=== PATIENT | female | born 2000 | race Caucasian/White ===

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

== ENCOUNTER → 2021-03-01 09:56 | Outpatient (CLI) | payer OTHER, SELFPAY ==
[2021-03-01 10:48] LABS: Add Manual Diff / Slide Review NO; Basophils Absolute Auto 0 /uL (0-100); Basophils Percent Auto 0.6 % (0-2); Eosinophils Absolute Auto 200 /uL (0-450); Eosinophils Percent Auto 3.2 % (2-4); Hematocrit 41.6 % (36-46); Hemoglobin 13.6 g/dL (12.0-16.0); Lymphocytes Absolute Auto 2500 /uL (1100-4500); Lymphocytes Percent Auto 35.6 % (25-40); Mean Corpuscular HGB Conc 32.8 % (30-36); Mean Corpuscular Volume 79.2 fL (80-100); Monocytes Absolute Auto 500 /uL (0-900); Monocytes Percent Auto 7.1 % (3-14); Neutrophils Absolute Auto 3800 /uL (1500-7000); Neutrophils Percent Auto 53.5 % (50-75); Platelet Count 330 X10^3/uL (150-400); Red Blood Cell Count 5.24 X10^6/uL (4.0-5.2); White Blood Cell Count 7.1 X10^3/uL (4.5-11.0)
== END ==
PROVIDERS: PCP Registered Nurse; Referring Provider Registered Nurse; Visit Provider Registered Nurse
DX: D64.9 Anemia, unspecified (principal)
CPT/HCPCS: 36415; 85025

== ENCOUNTER → 2022-04-14 14:04 | Outpatient (CLI) | payer OTHER, SELFPAY ==
[2022-04-14 14:31] LABS: Add Manual Diff / Slide Review NO; Basophils Absolute Auto 0 /uL (0-100); Basophils Percent Auto 0.4 % (0-2); Eosinophils Absolute Auto 300 /uL (0-450); Eosinophils Percent Auto 3.3 % (2-4); Hematocrit 40.2 % (36-46); Hemoglobin 13.2 g/dL (12.0-16.0); Lymphocytes Absolute Auto 2300 /uL (1100-4500); Lymphocytes Percent Auto 26.6 % (25-40); Mean Corpuscular HGB Conc 32.9 % (30-36); Mean Corpuscular Hemoglobin 27.2 PG (26-34); Mean Corpuscular Volume 82.6 fL (80-100); Monocytes Absolute Auto 700 /uL (0-900); Monocytes Percent Auto 7.6 % (3-14); Neutrophils Absolute Auto 5300 /uL (1500-7000); Neutrophils Percent Auto 62.1 % (50-75); Platelet Count 309 X10^3/uL (150-400); Red Blood Cell Count 4.87 X10^6/uL (4.0-5.2); Red Cell Distribution Width 13.8 % (11.6-14.8); White Blood Cell Count 8.6 X10^3/uL (4.5-11.0)
[2022-04-14 14:47] LABS: HEMOLYSIS < 15 (0-50); Iron 73 ug/dL (37-170)
[2022-04-14 14:57] LABS: Percent Iron Saturation 21 % (15-50); Total Iron Binding Capacity 352 ug/dL (265-497); Transferrin 262 mg/dL (206-381)
[2022-04-14 15:22] LABS: Ferritin 11 ng/mL (6-137)
== END ==
PROVIDERS: PCP Family Medicine; Referring Provider Family Medicine; Visit Provider Family Medicine
DX: E61.1 Iron deficiency (principal); N92.6 Irregular menstruation, unspecified
CPT/HCPCS: 36415; 82728; 83540; 83550; 85025

== ENCOUNTER → 2022-07-30 14:18 | Outpatient (CLI) | payer OTHER, SELFPAY | PROVIDERS: PCP Family Medicine; Visit Provider Family Medicine | DX: R10.9 Unspecified abdominal pain (principal) | CPT/HCPCS: 87086 ==

== ENCOUNTER → 2022-08-16 11:20 | Outpatient (CLI) | payer OTHER, SELFPAY ==
--- NOTE | 2022-08-16 11:21 | DI.US.S_ITS ---
PROCEDURE: US PELVIC COMPLETE INDICATIONS: PAIN TECHNIQUE: Real-time scanning was performed of the pelvic organs, with image documentation. Additional endovaginal scanning was necessary due to incomplete visualization of the adnexal and endometrial structures by transabdominal scanning. COMPARISON: None. FINDINGS: Uterus: Uterus is anteverted and normal in size at 7.2 x 3.6 x 4.5 cm. The myometrium is homogeneous. The endometrium measures 3 mm combined thickness. Ovaries: The right ovary measures 1.3 x 3.0 x 1.4 cm, with a calculated ovarian volume of 3 cc. The left ovary measures 2.8 x 3.1 x 1.5 cm, with a calculated ovarian volume of 7 cc. The ovaries have a normal sonographic appearance. Less than 12 follicles can be seen in each ovary. No adnexal masses are seen. Other: No pathologic free abdominal or pelvic fluid. IMPRESSION: Unremarkable pelvic ultrasound. We strive to produce accurate, complete, and clear reports of imaging services. To assist us in improving patient care, this report was composed using standard report templates and voice recognition software. Therefore, it may contain abnormal punctuation, insertions and/or omissions. Occasional wrong-word or sound-alike substitutions may occur. Though we review the report and make efforts to correct it, we do recommend that the report be read carefully in proper context to recognize any text inaccuracies. Dictated by: Onur Siddiqi M.D. on 08/16/2022 at 13:46 Approved by: Onur Siddiqi M.D. on 08/16/2022 at 13:47
== END ==
PROVIDERS: PCP Family Medicine; Referring Provider Family Medicine; Visit Provider Family Medicine
DX: R10.2 Pelvic and perineal pain (principal)
CPT/HCPCS: 76830; 76856; 93975

== ENCOUNTER → 2022-10-09 09:03 | Outpatient (CLI) | payer OTHER, SELFPAY ==
[2022-10-10 12:10] LABS: Candida species Negative (Negative); Gardnerella vaginalis Negative (Negative); Trichomoas vaginalis Negative (Negative)
== END ==
PROVIDERS: PCP Family Medicine; Visit Provider Specialist
DX: Z87.440 Personal history of urinary (tract) infections (principal)
CPT/HCPCS: 87480; 87510; 87660

== ENCOUNTER → 2024-05-02 09:03 | Outpatient (CLI) | payer OTHER, SELFPAY ==
[2024-05-02 10:21] LABS: Add Manual Diff / Slide Review NO; Basophils Absolute Auto 0 /uL (0-100); Basophils Percent Auto 0.4 % (0-2); Eosinophils Absolute Auto 200 /uL (0-450); Eosinophils Percent Auto 2.9 % (2-4); Hematocrit 36.6 % (36-46); Hemoglobin 12.1 g/dL (12.0-16.0); Lymphocytes Absolute Auto 2200 /uL (1100-4500); Lymphocytes Percent Auto 34.7 % (25-40); Mean Corpuscular HGB Conc 32.9 % (30-36); Mean Corpuscular Hemoglobin 26.1 PG (26-34); Mean Corpuscular Volume 79.2 fL (80-100); Monocytes Absolute Auto 500 /uL (0-900); Monocytes Percent Auto 8.1 % (3-14); Neutrophils Absolute Auto 3400 /uL (1500-7000); Neutrophils Percent Auto 53.9 % (50-75); Platelet Count 269 X10^3/uL (150-400); Red Blood Cell Count 4.63 X10^6/uL (4.0-5.2); Red Cell Distribution Width 15.5 % (11.6-14.8); White Blood Cell Count 6.4 X10^3/uL (4.5-11.0)
[2024-05-02 10:39] LABS: HEMOLYSIS < 15 (0-50); Iron 131 ug/dL (37-170)
[2024-05-02 10:49] LABS: Percent Iron Saturation 37 % (15-50); Total Iron Binding Capacity 350 ug/dL (265-497); Transferrin 316 mg/dL (206-381)
[2024-05-02 11:14] LABS: Ferritin 10 ng/mL (6-137)
[2024-05-03 03:39] LABS: HBsAg Screen Negative (Negative); Hepatitis A Antibody IgM Negative (Negative); Hepatitis B Core Antibody IgM Negative (Negative); Hepatitis C Antibody Non Reactive (Non Reactive)
== END ==
LOC: LAB 09:03
PROVIDERS: PCP Family Medicine; Referring Provider Family Medicine; Visit Provider Family Medicine
DX: Z11.59 Encounter for screening for other viral diseases (principal); D64.9 Anemia, unspecified; E61.1 Iron deficiency
CPT/HCPCS: 36415; 80074; 82728; 83540; 83550; 85025

== ENCOUNTER 2025-01-13 18:28 | Emergency (ER) | payer OTHER, SELFPAY ==
[2025-01-13 18:35] VITALS: BP 167/101; PULSE 94; RESP 14; TEMP 36.6; O2SAT 98; BMI 25.8
--- NOTE | 2025-01-13 18:51 | ED.FEMALEGU ---
HPI - Female Genitourinary General Chief complaint: Urogenital-Female Stated complaint: urogenital female Time Seen by Provider: 01/13/25 18:50 Source: patient Mode of arrival: Ambulatory History of Present Illness HPI Narrative: Patient here with mother. Complains of recurrent UTI. Patient started with another UTI about a month ago. Was placed on Macrobid without success. Last dose was about a week ago. Seen at outside facility. Patient has had off and on UTIs for the past 4 years. Has appointment in March 2025 with gynecological urology services. Patient denies any flank pain no fever chills no vomiting. Blood pressure noted. Patient is slightly anxious. Related Data Home Medications ?Medication ?Instructions ?Recorded ?Confirmed ferrous sulfate [Iron (ferrous 1 cap PO .qd 05/02/24 05/02/24 sulfate)] Previous Rx's ?Medication ?Instructions ?Recorded cefdinir 300 mg capsule 300 mg PO BID #14 caps 01/13/25 phenazopyridine 200 mg tablet 200 mg PO TID PRN pain 6 doses #6 01/13/25 (Pyridium) tabs Allergies Allergy/AdvReac Type Severity Reaction Status Date / Time No Known Allergies Allergy Uncoded 01/13/25 18:35 Review of Systems Review of Systems Narrative: GENERAL: Negative chills, fatigue, malaise, fever, sweats. HEENT: Negative sinus pain, ear pain, sore throat RESPIRATORY: Negative dyspnea, cough CARDIOVASCULAR: Negative chest pain, palpitations GASTROINTESTINAL: Negative vomiting, nausea, abdominal pain : Positive dysuria, frequency, negative hematuria MUSCULOSKELETAL: Negative muscle or bony pain SKIN: Negative rash, skin lesions NEUROLOGIC: Negative weakness, numbness ROS Unobtainable: All systems reviewed & are unremarkable except as noted in HPI and below Patient History Medical History (Updated 01/13/25 @ 18:54 by Alonzo Sauer MD) Iron deficiency Irregular periods Anemia, unspecified Immunization due Exam Narrative Exam Narrative: GENERAL: in no distress, not toxic not dyspneic HEAD: Normocephalic. EYES: Pupils equal round ENT: Mucous membranes moist. NECK: Trachea midline. CARDIOVASCULAR: Regular rate and rhythm RESPIRATORY: Clear to auscultation. Breath sounds equal bilaterally. No wheezes, rales, or rhonchi. GASTROINTESTINAL: Abdomen soft, reproducible suprapubic tenderness. No CVA tenderness. No peritoneal signs. No guarding or rebound. BACK: No flank tenderness. EXTREMITIES: No gross deformities. NEURO: AOx4. Clear speech SKIN: Warm and dry PSYCH: Not anxious, is cooperative Initial Vital Signs Initial Vital Signs: Vital Signs Temperature 98 F 01/13/25 18:35 Pulse Rate 94 H 01/13/25 18:35 Respiratory Rate 14 01/13/25 18:35 Blood Pressure 167/101 H 01/13/25 18:35 Pulse Oximetry 98 01/13/25 18:35 Oxygen Delivery Method Room Air 01/13/25 18:35 Course Orders Ordered: Discontinued Medications Cefdinir (Cefdinir 300 Mg Capsule) 300 mg PO NOW ONE Stop: 01/13/25 18:52 Last Admin: 01/13/25 19:03 Dose: 300 mg Documented By: EDWARD Phenazopyridine HCl (Phenazopyridine 100 Mg Tablet) 200 mg PO NOW ONE Stop: 01/13/25 18:52 Last Admin: 01/13/25 19:03 Dose: 200 mg Documented By: EDWARD Vital Signs Vital signs: Vital Signs - 8 hr 01/13/25 18:35 01/13/25 20:06 Temperature 98 F Pulse Rate 94 H 79 Respiratory Rate 14 20 Blood Pressure 167/101 H 143/85 H Pulse Oximetry 98 96 Oxygen Delivery Method Room Air Room Air MDM - Female Genitourinary Lab Data Labs: Point of Care Testing Test Results Negative Urine Dip Bedside Urine Glucose Negative Bedside Urine Bilirubin - Negative Bedside Urine Ketone - Negative Urine Specific [place] 1.000 Bedside Urine Occult Blood - Negative Bedside Urine pH 5.5 Bedside Urine Protein - Negative Bedside Urine Urobilinogen - Negative Bedside Urine Nitrite - Negative Bedside Urine Leukocytes - Negative Esterase [facility] Narrative Medical decision making narrative: Patient brought in by family private vehicle for bright red per rectum rectal bleeding that started today. Has lower abdominal pain. Never had this problem before. No vaginal bleeding. Patient not on any blood thinners. 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 Has been taking her Keppra. Had a seizure in the car EN route here. Patient is awake alert answering appropriately at this time has tremors. Denies any injury from the seizure. No tongue biting. Patient allergic to penicillins. MDM After history and exam, cefdinir Pyridium urinalysis test, no blood work or imaging indicated. No CVA tenderness. No fever. Differential considered: Includes but not limited to cystitis pyelonephritis UTI appendicitis colitis kidney stone Medical records reviewed: No recent visit here for this complaint Lab Test results independently reviewed as above. Pertinent findings: Urinalysis negative nitrite negative leukocytes negative Consultations: None indicated at this time. Re-evaluations: 8:00 p.m.. Updated patient results. She does not want blood work or imaging at this time. Feels this is likely extension of your UTI,/cystitis. Return precautions reviewed. School note provided for tomorrow. She desires discharge home. Discussion: Appropriate for discharge home. Exam is reassuring. Blood pressure improved at time of discharge. No blood work or imaging indicated this time. Treating clinically for cystitis. Diagnosis: Acute cystitis Discharge Plan Departure Patient Disposition: Home Clinical Impression: Acute cystitis Qualifiers: Hematuria presence: with hematuria Qualified Code(s): N30.01 - Acute cystitis with hematuria Instructions: DI for Urinary Tract Infection (UTI) Activity Restrictions/Additional Instructions: You are being treated for urinary tract infection. Antibiotics have been started tonight and have been sent to your pharmacy to continue tomorrow. School note has been provided for you. Keep well hydrated. See your zinc etcher/urology provider as scheduled. Return if worse if any questions or concerns Prescriptions: New cefdinir 300 mg capsule 300 mg PO BID Qty: 14 0RF phenazopyridine [Pyridium] 200 mg tablet 200 mg PO TID PRN (Reason: pain) Qty: 6 0RF No Action ferrous sulfate [Iron (ferrous sulfate)] 1 cap PO .qd Referrals: Moriah Burns MD [Primary Care Provider, Family Practice] Stand Alone Forms: Patient Portal/API, School Release Note
[2025-01-13] MEDS: CEFDINIR 300 MG CAPSULE PO (19:03)
[2025-01-13] MEDS: PHENAZOPYRIDINE 100 MG TABLET 200 MG PO (19:03)
[2025-01-13 20:06] VITALS: BP 143/85; PULSE 79; RESP 20; O2SAT 96
== END 2025-01-13 20:16 | disposition home or self-care (01) ==
PROVIDERS: Emergency Provider Emergency Medicine; PCP Family Medicine
DX: N30.01 Acute cystitis with hematuria (principal); Z87.440 Personal history of urinary (tract) infections
CPT/HCPCS: 81003; 81025; 99283